=== PATIENT | male | born 1980 | race Caucasian/White ===

== ENCOUNTER 2017-07-16 03:01 | Inpatient (IN) | payer OTHER ==
[~2017-07-16] VITALS: Ht 175.3 cm; Wt 71.4 kg
[~2017-07-16 03:01] MED LIST: AMBIEN10 MG; AMBIEN10 MG PO; BACTRIM,SEPT1 TABLET PO; DILAUDID2 MG PO; HYDROCODON-ACE1 EAC7 PO; KEFLEX500 MG PO; NAPROSYN500 MG PO; NOHOMEMEDS
[2017-07-16 04:12] LABS: HEMATOCRIT 41.8 % (38.0-50.0); HEMOGLOBIN 14.8 G/DL (12.5-16.6); MCH 30.3 PG (29.0-34.0); MCHC 35.4 G/DL (30.0-36.0); MCV 85.5 FL (86-99); PLATELET COUNT 347 K/uL (156-360); RBC DIS.WIDTH-CV 13.6 % (11.8-14.6); RBC DIS.WIDTH-SD 42.5 % (39-53); RED BLOOD COUNT 4.89 M/uL (4.00-5.50); WHITE BLOOD COUNT 10.2 K/uL (4.1-10.2)
[2017-07-16 04:12] LABS: AMPHETAMINE NEGATIVE (500 ng/mL); BARBITURATES NEGATIVE (200 ng/mL); BENZODIAZEPINES NEGATIVE (150 ng/mL); BUPRENORPHINE NEGATIVE (10 ng/mL); COCAINE NEGATIVE (150 ng/mL); METHADONE NEGATIVE (200 ng/mL); METHAMPHETAMINE NEGATIVE (500 ng/mL); OPIATES (MORPHINE) NEGATIVE (100 ng/mL); OXYCODONE NEGATIVE (100 ng/mL); PHENCYCLIDINE NEGATIVE (25 ng/mL); PROPOXYPHENE NEGATIVE (300 ng/mL); THC CANNABINOIDS NEGATIVE (50 ng/mL); TRICYCLIC ANTIDEPRESSANTS NEGATIVE (300 ng/mL)
[2017-07-16 04:23] LABS: CHLORIDE 104 mEq/L (99-109); POTASSIUM 3.8 mEq/L (3.7-5.4); SODIUM 142 mEq/L (136-147)
[2017-07-16 04:25] LABS: GLUCOSE 89 mg/dL (70-99)
[2017-07-16 04:28] LABS: CREATININE 0.7 mg/dL (0.6-1.3); GFR ESTIMATE (CALCULATED) > 59 mL/min/ (58.99-99999); SERUM ETHYL ALCOHOL 334 mg/dL
[2017-07-16 04:29] LABS: UREA NITROGEN (BUN) 5 mg/dL (9-23)
[2017-07-16] MEDS ORDERED: XANAX0.5 MG PO (15:08)
[2017-07-16 15:22] VITALS: BP 146/79
[2017-07-16 15:27] VITALS: BP 146/79
[2017-07-16] MEDS ORDERED: PERCOCET 2.51 TABLET PO (16:07)
[2017-07-16] MEDS ORDERED: MOTRIN800 MG PO (16:08)
[2017-07-17 07:30] VITALS: BP 120/71
[2017-07-17 15:27] VITALS: BP 136/73
[2017-07-17 21:10] VITALS: BP 130/77
[2017-07-18 06:51] VITALS: BP 92/47
== END 2017-07-18 10:10 | disposition home or self-care (01) | DRG 882 ==
LOC: EME 03:01 → ENRESERV 14:54 → EDOF 14:58 → 1WEST 14:58
PROVIDERS: Emergency Medicine
DX: F43.20 Adjustment disorder, unspecified (principal); Y90.8 Blood alcohol level of 240 mg/100 ml or more; R45.851 Suicidal ideations; F10.229 Alcohol dependence with intoxication, unspecified; Z87.891 Personal history of nicotine dependence; Z90.81 Acquired absence of spleen; S60.221A Contusion of right hand, initial encounter; W22.8XXA Striking against or struck by other objects, initial encounter; R56.9 Unspecified convulsions; Y92.9 Unspecified place or not applicable
CPT/HCPCS: 73130; 80048; 85027; 90839; 99281; 99285; G0480; Q0177

== ENCOUNTER 2017-09-20 16:08 | Emergency (ER) | payer OTHER ==
[~2017-09-20] VITALS: Ht 175.3 cm; Wt 72.5 kg
[~2017-09-20 16:08] MED LIST changes: +MOTRIN800 MG PO; +PERCOCET 2.51 TABLET PO; +XANAX0.5 MG PO
[2017-09-20 18:26] LABS: ALBUMIN 4.1 g/dL (3.2-4.8); CHLORIDE 105 mEq/L (99-109); POTASSIUM 4.5 mEq/L (3.7-5.4); SODIUM 141 mEq/L (136-147)
[2017-09-20 18:29] LABS: GLUCOSE 92 mg/dL (70-99); TOTAL PROTEIN 7.7 g/dL (6.4-8.3)
[2017-09-20 18:31] LABS: TOTAL BILIRUBIN 0.4 mg/dL (0.0-1.0)
[2017-09-20 18:32] LABS: ALKALINE PHOSPHATASE 82 IU/L (3-129); CREATININE 0.7 mg/dL (0.6-1.3); GFR ESTIMATE (CALCULATED) > 59 mL/min/ (58.99-99999)
[2017-09-20 18:33] LABS: UREA NITROGEN (BUN) 5 mg/dL (9-23)
[2017-09-20 18:34] LABS: AST (GOT) 67 IU/L (2-34)
[2017-09-20 18:35] LABS: ALT (GPT) 121 IU/L (3-49)
[2017-09-20 18:41] LABS: TROP-I INTERPRETATION NEGATIVE; TROPONIN-I < 0.01 ng/mL (0.0-0.30)
[2017-09-20 20:32] LABS: TROP-I INTERPRETATION NEGATIVE; TROPONIN-I < 0.01 ng/mL (0.0-0.30)
[2017-09-20] MEDS ORDERED: FLEXERIL10 MG PO (21:07)
[2017-09-20 21:21] VITALS: BP 121/71
== END 2017-09-20 21:22 | disposition home or self-care (01) ==
LOC: EME 16:08
PROVIDERS: Nurse Practitioner Family
DX: R10.13 Epigastric pain (principal); R07.9 Chest pain, unspecified; R79.89 Other specified abnormal findings of blood chemistry; H72.92 Unspecified perforation of tympanic membrane, left ear; R56.9 Unspecified convulsions; Z87.891 Personal history of nicotine dependence; Z90.81 Acquired absence of spleen; Z87.820 Personal history of traumatic brain injury
CPT/HCPCS: 71046; 80053; 84484; 93005; 99281; 99285